=== PATIENT | female | born 1990 | race Asian ===

== ENCOUNTER 2020-06-25 11:01 | Emergency (ER) | payer SELFPAY ==
[~2020-06-25] VITALS: Ht 162.6 cm; Wt 73.5 kg
[2020-06-25 11:40] VITALS: BP_SYST 150
--- NOTE | 2020-06-25 11:48 | NUR ---
Pt brought by self, A&Ox4, pt presents to ER with redness/ discharge on L ear after piercing was placed 2 weeks ago , pt states she is ,pt states she is type 1 diabetic, skin pink and warm, afebrile, will cont to monitor.
--- NOTE | 2020-06-25 11:50 | NUR ---
Dr Hawley evaluating patient at the triage room
[2020-06-25] MEDS ORDERED: cefTRIAXone 1 GM in LIDOCAINE 1%, 20 ML MDV 2.1 ML IM ONE (12:00)
--- NOTE | 2020-06-25 12:45 | NUR ---
Pt afebrile, no s/s of distress.
[2020-06-25 13:27] VITALS: BP_SYST 150
--- NOTE | 2020-06-25 13:28 | NUR ---
Patient given written and verbal discharge instructions and verbalizes understanding. ER MD discussed with patient the results and treatment provided. Patient in stable condition. ID arm band removed. No Rx given. Patient educated on pain management and to follow up with PMD. Pain Scale 3/10 tolerable for pt.pt awared she needs to return in 2 days for wound check. Opportunity for questions provided and answered. Medication side effect fact sheet provided.
== END 2020-06-25 13:28 | disposition home or self-care (01) ==
LOC: SED 11:01
DX: O26.891 Other specified pregnancy related conditions, first trimester (principal); H60.12 Cellulitis of left external ear; H92.02 Otalgia, left ear; Z3A.01 Less than 8 weeks gestation of pregnancy
CPT/HCPCS: 96372; 99283; J0696; J2001

== ENCOUNTER 2020-06-27 11:10 | Emergency (ER) | payer SELFPAY ==
[~2020-06-27] VITALS: Ht 162.6 cm; Wt 74.8 kg
[2020-06-27 11:18] VITALS: BP_SYST 136
--- NOTE | 2020-06-27 11:30 | NUR ---
Pt brought by self, A&Ox4, pt presents to ER for follow up on L ear infection after piercing placement 2 weeks ago, pt afebrile, skin pink and warm, cap refill <3, VSS, respirations even and unlabored.
--- NOTE | 2020-06-27 11:45 | NUR ---
Dr Carroll evaluating patient in the triage room
[2020-06-27] MEDS ORDERED: LIDOCAINE 1% 10 MG/ML, 20 ML MDV INJ ONE (12:15)
[2020-06-27 13:55] VITALS: BP_SYST 136
--- NOTE | 2020-06-27 13:58 | NUR ---
Patient given written and verbal discharge instructions and verbalizes understanding. ER MD discussed with patient the results and treatment provided. Patient in stable condition. ID arm band removed. Rx of [place] given. Patient educated on pain management and to follow up with PMD. Pain Scale 3/10 tolerable for patient. Opportunity for questions provided and answered. Medication side effect fact sheet provided.
== END 2020-06-27 13:58 | disposition home or self-care (01) ==
LOC: SED 11:10
DX: O26.891 Other specified pregnancy related conditions, first trimester (principal); H66.40 Suppurative otitis media, unspecified, unspecified ear; E11.9 Type 2 diabetes mellitus without complications; Z3A.01 Less than 8 weeks gestation of pregnancy
CPT/HCPCS: 69000; 99283; J2001

== ENCOUNTER 2020-07-04 15:22 | Emergency (ER) | payer OTHER | END 2020-07-04 18:55 | disposition other institution (70) | LOC: SED 15:22 | DX: O26.891 Other specified pregnancy related conditions, first trimester (principal); H92.01 Otalgia, right ear; E10.69 Type 1 diabetes mellitus with other specified complication; Z3A.01 Less than 8 weeks gestation of pregnancy | CPT/HCPCS: 99285 ==

== ENCOUNTER 2020-07-04 16:53 | Inpatient (IN) | payer OTHER, SELFPAY ==
[~2020-07-04] VITALS: Ht 162.6 cm; Wt 74.8 kg
[2020-07-04 21:00] VITALS: BP_SYST 145
[2020-07-04] MEDS ORDERED: HYDROcodone/ACETAMIN 7.5-325 MG TAB PO PRN (21:15)
[2020-07-04] MEDS ORDERED: ZOLPIDEM TARTRATE 5 MG TABLET PO PRN (21:15)
[2020-07-04] MEDS ORDERED: DOCUSATE SODIUM 100 MG/10 ML UDC PO PRN (21:15)
[2020-07-04] MEDS ORDERED: ONDANSETRON HCL 4 MG/2 ML VIAL IVP PRN (21:15)
[2020-07-04] MEDS: NACL 0.9% 1,000 ML IV SCH (22:30)
[2020-07-04 23:18] LABS: BASOPHILS # (AUTO) 0.1 K/uL (0.0-0.2); BASOPHILS % (AUTO) 1.1 % (0.0-2.0); EOSINOPHILS # (AUTO) 0.1 K/uL (0.0-0.4); EOSINOPHILS % (AUTO) 1.1 % (0.0-4.0); HEMATOCRIT 37.1 % (36-48); HEMOGLOBIN 12.7 g/dL (12.0-16.0); LYMPHOCYTES # (AUTO) 2.7 K/uL (1.0-5.5); LYMPHOCYTES % (AUTO) 29.1 % (20.5-51.5); MEAN CORPUSCULAR HEMOGLOBIN 29 pg (27-31); MEAN CORPUSCULAR HGB CONC 34 % (32-36); MEAN CORPUSCULAR VOLUME 86 fL (79.0-98.0); MONOCYTES # (AUTO) 0.5 K/uL (0.0-1.0); MONOCYTES % (AUTO) 5.4 % (1.7-9.3); NEUTROPHILS # (AUTO) 5.9 K/uL (1.8-7.7); NEUTROPHILS % (AUTO) 63.3 % (40.0-70.0); PLATELET COUNT (AUTO) 363 K/uL (130-430); RED BLOOD CELL COUNT(AUTO) 4.34 MIL/uL (4.2-6.2); RED CELL DISTRIBUTION WIDTH 13.1 % (9.0-15.0); WHITE BLOOD COUNT (AUTO) 9.3 K/uL (4.8-10.8)
[2020-07-04 23:40] LABS: ALBUMIN 3.1 g/dL (3.4-4.8); CALCIUM 8.5 mg/dL (8.4-11.0); CREATININE 0.66 mg/dL (0.55-1.30); FREE T4 (FREE THYROXINE) 0.8 ng/dL (0.6-1.6); PHOSPHORUS 4.4 mg/dL (2.7-4.5); POTASSIUM 3.9 mmol/L (3.5-5.1); THYROID STIMULATING HORMONE 2.56 uIu/mL (0.34-4.82); TOTAL BILIRUBIN 0.2 mg/dL (0.0-1.0)
[2020-07-05] MEDS: ACETAMINOPHEN 500 MG TABLET PO PRN ×5 (00:16→21:38)
[2020-07-05 00:52] LABS: BILIRUBIN,URINE NEGATIVE (NEGATIVE); CLARITY/URINE CLEAR (CLEAR); COLOR,URINE YELLOW (YELLOW); GLUCOSE,URINE NEGATIVE (NEGATIVE); KETONES,URINE NEGATIVE (NEGATIVE); LEUKOCYTE ESTERASE ,URINE NEGATIVE (NEGATIVE); NITRITE, URINE NEGATIVE (NEGATIVE); PROTEIN URINE NEGATIVE (NEGATIVE); UROBILINOGEN,URINE 0.2 (0.2-1.0)
[2020-07-05 00:55] LABS: BLOOD, URINE TRACE (NEGATIVE)
[2020-07-05 00:58] LABS: INR 0.9 (0.8-1.2); PROTHROMBIN TIME 9.4 SECS (9.5-12.5)
[2020-07-05 01:03] LABS: BARBITURATE, URINE NEGATIVE (NEG <=200); BENZODIAZEPINE, URINE NEGATIVE (NEG <=150); CANNABINOID, URINE NEGATIVE (NEG <=50); COCAINE, URINE NEGATIVE (NEG <=150); METHAMPHETAMINES SCREEN,URINE NEGATIVE (NEG <=500); OPIATE, URINE NEGATIVE (NEG <=100); PHENCYCLIDINE SCREEN,URINE NEGATIVE (NEG <=25); UR TRICYCLIC ANTIDEPRESSANTS NEGATIVE (NEG <=300); URINE AMPHETAMINE NEGATIVE (NEG <=500); URINE METHADONE NEGATIVE (NEG <=200); URINE OXYCODONE SCREEN NEGATIVE (NEG <=100); URINE PROPOXYPHENE SCREEN NEGATIVE (NEG <=300)
[2020-07-05 04:02] LABS: BACTERIA,URINE FEW /HPF (None Seen); WBC,URINE 0-3 /HPF (0-3)
[2020-07-05] MEDS ORDERED: CEFEPIME 2 GM/VIAL (MAXIPIME) ONE (04:40)
[2020-07-05] MEDS ORDERED: POTASSIUM CHLORIDE 20 MEQ TAB.PRT.SR PO PRN (09:00)
[2020-07-05] MEDS: PANTOPRAZOLE SODIUM 40 MG TAB PO SCH (09:00)
[2020-07-05] MEDS ORDERED: D5NS 1,000 ML IV SCH (10:00)
[2020-07-05 10:23] LABS: BASOPHILS # (AUTO) 0.1 K/uL (0.0-0.2); BASOPHILS % (AUTO) 0.8 % (0.0-2.0); EOSINOPHILS # (AUTO) 0.1 K/uL (0.0-0.4); EOSINOPHILS % (AUTO) 1.1 % (0.0-4.0); HEMATOCRIT 36.9 % (36-48); HEMOGLOBIN 12.8 g/dL (12.0-16.0); LYMPHOCYTES # (AUTO) 2.2 K/uL (1.0-5.5); LYMPHOCYTES % (AUTO) 27.8 % (20.5-51.5); MEAN CORPUSCULAR HEMOGLOBIN 30 pg (27-31); MEAN CORPUSCULAR HGB CONC 35 % (32-36); MEAN CORPUSCULAR VOLUME 86 fL (79.0-98.0); MONOCYTES # (AUTO) 0.6 K/uL (0.0-1.0); MONOCYTES % (AUTO) 7.5 % (1.7-9.3); NEUTROPHILS % (AUTO) 62.8 % (40.0-70.0); PLATELET COUNT (AUTO) 314 K/uL (130-430); RED BLOOD CELL COUNT(AUTO) 4.28 MIL/uL (4.2-6.2); RED CELL DISTRIBUTION WIDTH 13.1 % (9.0-15.0)
[2020-07-05 10:37] LABS: CALCIUM 8.5 mg/dL (8.4-11.0); CREATININE 0.65 mg/dL (0.55-1.30); POTASSIUM 3.8 mmol/L (3.5-5.1)
[2020-07-05] MEDS: NACL 0.9% 1,000 ML IV SCH (13:36)
[2020-07-05] MEDS: CEFEPIME 2 GM in D5W 100 ML IV SCH (18:04)
[2020-07-05 23:04] VITALS: BP_SYST 116
[2020-07-06] MEDS: CEFEPIME 2 GM in D5W 100 ML IV SCH ×2 (06:08→18:12)
[2020-07-06] MEDS: NACL 0.9% 1,000 ML IV SCH ×4 (06:12→20:56)
[2020-07-06] MEDS: ACETAMINOPHEN 500 MG TABLET PO PRN ×2 (06:22→12:17)
[2020-07-06] MEDS: PANTOPRAZOLE SODIUM 40 MG TAB PO SCH (09:00)
[2020-07-06 11:26] LABS: BASOPHILS % (AUTO) 0.7 % (0.0-2.0); EOSINOPHILS # (AUTO) 0.1 K/uL (0.0-0.4); EOSINOPHILS % (AUTO) 2.3 % (0.0-4.0); HEMATOCRIT 35.1 % (36-48); HEMOGLOBIN 12.2 g/dL (12.0-16.0); LYMPHOCYTES # (AUTO) 1.9 K/uL (1.0-5.5); LYMPHOCYTES % (AUTO) 29.3 % (20.5-51.5); MEAN CORPUSCULAR HEMOGLOBIN 30 pg (27-31); MEAN CORPUSCULAR HGB CONC 35 % (32-36); MEAN CORPUSCULAR VOLUME 86 fL (79.0-98.0); MONOCYTES # (AUTO) 0.4 K/uL (0.0-1.0); MONOCYTES % (AUTO) 6.1 % (1.7-9.3); NEUTROPHILS # (AUTO) 3.9 K/uL (1.8-7.7); NEUTROPHILS % (AUTO) 61.6 % (40.0-70.0); PLATELET COUNT (AUTO) 316 K/uL (130-430); RED BLOOD CELL COUNT(AUTO) 4.07 MIL/uL (4.2-6.2); RED CELL DISTRIBUTION WIDTH 13.1 % (9.0-15.0); WHITE BLOOD COUNT (AUTO) 6.4 K/uL (4.8-10.8)
[2020-07-06 12:17] LABS: CALCIUM 8.7 mg/dL (8.4-11.0); CREATININE 0.64 mg/dL (0.55-1.30); POTASSIUM 3.7 mmol/L (3.5-5.1)
[2020-07-06] MEDS: POLYMYXIN B SULFATE IV PRN ×2 (17:20→23:15)
[2020-07-06] MEDS: NS IV PRN ×2 (17:20→23:15)
[2020-07-06 21:00] VITALS: BP_SYST 113
[2020-07-07 00:01] VITALS: BP_SYST 113
[2020-07-07] MEDS: CEFEPIME 2 GM in D5W 100 ML IV SCH ×3 (05:44→21:00)
[2020-07-07] MEDS: POLYMYXIN B SULFATE IV PRN ×3 (05:45→23:00)
[2020-07-07] MEDS: NS IV PRN ×3 (05:45→23:00)
[2020-07-07] MEDS ORDERED: [UNRECOGNIZED DRUG - CODE] MC (07:57)
[2020-07-07 10:05] LABS: BASOPHILS % (AUTO) 0.6 % (0.0-2.0); EOSINOPHILS # (AUTO) 0.1 K/uL (0.0-0.4); EOSINOPHILS % (AUTO) 2.1 % (0.0-4.0); HEMATOCRIT 35.5 % (36-48); HEMOGLOBIN 12.3 g/dL (12.0-16.0); LYMPHOCYTES # (AUTO) 1.8 K/uL (1.0-5.5); LYMPHOCYTES % (AUTO) 28.7 % (20.5-51.5); MEAN CORPUSCULAR HEMOGLOBIN 30 pg (27-31); MEAN CORPUSCULAR HGB CONC 35 % (32-36); MEAN CORPUSCULAR VOLUME 86 fL (79.0-98.0); MONOCYTES # (AUTO) 0.4 K/uL (0.0-1.0); MONOCYTES % (AUTO) 5.8 % (1.7-9.3); NEUTROPHILS % (AUTO) 62.8 % (40.0-70.0); PLATELET COUNT (AUTO) 309 K/uL (130-430); RED BLOOD CELL COUNT(AUTO) 4.14 MIL/uL (4.2-6.2); RED CELL DISTRIBUTION WIDTH 12.9 % (9.0-15.0); WHITE BLOOD COUNT (AUTO) 6.4 K/uL (4.8-10.8)
[2020-07-07 10:18] LABS: PROTHROMBIN TIME 9.8 SECS (9.5-12.5)
[2020-07-07 10:35] LABS: CALCIUM 8.5 mg/dL (8.4-11.0); CREATININE 0.64 mg/dL (0.55-1.30); POTASSIUM 3.5 mmol/L (3.5-5.1)
--- NOTE | 2020-07-07 11:00 | NUR ---
ear lobe irrigation 5ml of polymixin b sulfate given after warm compress. comfortable.
[2020-07-07] MEDS: NACL 0.9% 1,000 ML IV SCH (13:38)
[2020-07-08] MEDS ORDERED: CEFAZOLIN 2 GM IVPB PREMIX 0 ML IV ONE (01:37)
[2020-07-08] MEDS: NS IV PRN (05:56)
[2020-07-08] MEDS: POLYMYXIN B SULFATE IV PRN (05:56)
[2020-07-08] MEDS: CEFEPIME 2 GM in D5W 100 ML IV SCH (09:04)
[2020-07-08] MEDS: NACL 0.9% 1,000 ML IV SCH (09:11)
[2020-07-08 10:09] LABS: BASOPHILS # (AUTO) 0.1 K/uL (0.0-0.2); BASOPHILS % (AUTO) 0.7 % (0.0-2.0); EOSINOPHILS # (AUTO) 0.2 K/uL (0.0-0.4); EOSINOPHILS % (AUTO) 2.6 % (0.0-4.0); HEMATOCRIT 35.9 % (36-48); HEMOGLOBIN 12.5 g/dL (12.0-16.0); LYMPHOCYTES # (AUTO) 2.1 K/uL (1.0-5.5); LYMPHOCYTES % (AUTO) 29.9 % (20.5-51.5); MEAN CORPUSCULAR HEMOGLOBIN 30 pg (27-31); MEAN CORPUSCULAR HGB CONC 35 % (32-36); MEAN CORPUSCULAR VOLUME 86 fL (79.0-98.0); MONOCYTES # (AUTO) 0.4 K/uL (0.0-1.0); MONOCYTES % (AUTO) 5.8 % (1.7-9.3); NEUTROPHILS # (AUTO) 4.3 K/uL (1.8-7.7); PLATELET COUNT (AUTO) 300 K/uL (130-430); RED BLOOD CELL COUNT(AUTO) 4.17 MIL/uL (4.2-6.2)
[2020-07-08 10:39] LABS: CALCIUM 8.6 mg/dL (8.4-11.0); CREATININE 0.62 mg/dL (0.55-1.30); POTASSIUM 3.5 mmol/L (3.5-5.1)
--- NOTE | 2020-07-09 09:22 | NUR ---
Late Entry: SDP arranged IV medication with [facility], Patient refused home harpreet, stating will administer medication and flush ear abscess.
== END 2020-07-08 11:45 | disposition home or self-care (01) | DRG 832 ==
LOC: UNDOADMIN 16:53 → SPU 16:53
PROVIDERS: ADMIT Family Medicine; ATTEND Family Medicine
DX: O99.711 Diseases of the skin and subcutaneous tissue complicating pregnancy, first trimester (principal); E87.1 Hypo-osmolality and hyponatremia; O99.281 Endocrine, nutritional and metabolic diseases complicating pregnancy, first trimester; O99.891 Other specified diseases and conditions complicating pregnancy; E78.2 Mixed hyperlipidemia; O25.11 Malnutrition in pregnancy, first trimester; E86.0 Dehydration; H61.002 Unspecified perichondritis of left external ear; H60.12 Cellulitis of left external ear; Z20.828 Contact with and (suspected) exposure to other viral communicable diseases; B96.5 Pseudomonas (aeruginosa) (mallei) (pseudomallei) as the cause of diseases classified elsewhere; E10.9 Type 1 diabetes mellitus without complications; Z3A.01 Less than 8 weeks gestation of pregnancy; Z87.730 Personal history of (corrected) cleft lip and palate; Z79.4 Long term (current) use of insulin
CPT/HCPCS: 36415; 76805-TC; 80048; 80053; 80061; 80307; 81000-TC; 82150-TC; 83036; 83605; 83690-TC; 83735-TC; 83880; 84100-TC; 84439; 84443-TC; 84484; 85025; 85610-TC; 85730-TC; 87040-TC; J0690; J0692; J7030; J7050; J7060